=== PATIENT | female | born 1995 | race Caucasian/White ===

== ENCOUNTER 2018-09-15 19:03 | Emergency (ER) | payer BC ==
[~2018-09-15] VITALS: Ht 162.6 cm; Wt 52.6 kg
[2018-09-15 19:25] VITALS: Ht 162.6 cm; Wt 52.6 kg
[2018-09-15 19:52] LABS: BASOPHIL % 0.8 % (0-2); PLATELET COUNT 278 x10^3mcL (130-400)
[2018-09-15 20:01] LABS: CALCIUM 8.7 mg/dL (8.5-10.1); CHLORIDE SERUM 104 mmol/L (98-107); CREATININE SERUM 0.8 mg/dL (0.6-1.0); GFR1 > 60 mL/min; GLUCOSE SERUM 151 mg/dL (74-106); SODIUM SERUM 139 mmol/L (136-145)
[2018-09-15 20:02] LABS: microscopic required? NO
[2018-09-15 20:05] LABS: ALBUMIN 4.1 g/dL (3.4-5.0); ALKALINE PHOSPHATASE 61 U/L (46-116); ALT/SGPT 14 U/L (14-59); AST/SGOT 12 U/L (15-37); BILIRUBIN TOTAL 1.31 mg/dL (0.20-1.00)
[2018-09-15 20:14] LABS: TOTAL PROTEIN, SERUM 8.7 g/dL (6.4-8.2)
[2018-09-15 20:24] LABS: urine erythrocyte NEGATIVE (NEGATIVE)
[2018-09-15 20:33] LABS: AMPHETAMINE QUAL UR NONE DETECTED (See below)
[2018-09-15 22:41] VITALS: BP 108/70
== END 2018-09-15 23:26 | disposition home or self-care (01) ==
LOC: ED 19:03
PROVIDERS: Emergency Medicine
DX: F41.9 Anxiety disorder, unspecified (principal); F22 Delusional disorders
CPT/HCPCS: 36415; G0480